=== PATIENT | female | born 2000 | race Two or more races ===

== ENCOUNTER 2018-08-03 10:54 | Emergency (ER) | payer SELFPAY ==
[~2018-08-03] VITALS: Ht 152.4 cm; Wt 63.5 kg
[~2018-08-03 10:54] MED LIST: HYDR-3164 PO; NAPR-683 PO; PNV1TABL25 PO
[2018-08-03 11:30] VITALS: BP 107/73
[2018-08-03 12:51] LABS: BILIRUBIN,URINE NEGATIVE (NEG); CLARITY,URINE CLEAR; COLOR,URINE YELLOW; NITRITE,URINE NEGATIVE (NEG); PH,URINE 5.5; PROTEIN,URINE NEGATIVE (NEG-TRACE)
[2018-08-03 13:03] LABS: SQUAMOUS EPITHELIAL CELL,UR MANY /LPF
[2018-08-03 13:04] LABS: BACTERIA,URINE MODERATE /HPF (0-FEW); WBC,URINE 20-40 /HPF (0-4)
[2018-08-03 13:25] LABS: U PREG PATIENT NEGATIVE (NEG)
[2018-08-03] MEDS ORDERED: KETOROLAC 30 MG/ML VIAL. IM ONE (13:45)
[2018-08-03] MEDS ORDERED: NITR100C62 PO (13:47)
[2018-08-03] MEDS ORDERED: CYCL5TAB PO (13:47)
--- NOTE | 2018-08-03 19:53 | PHYS DOC ---
Past Medical History Past Medical History: No Pertinent History Past Surgical History: No Surgical History Alcohol Use: Rarely Drug Use: None Adult General Chief Complaint Chief Complaint: BACK PAIN - NO INJURY HPI HPI Patient is a 18 year old female was presenting with chief complaint of back pain. 2 days ago part of the foot per son no acute injury left mid back no fever no bowel bladder incontinence legs feel normal has had back pain before but it usually goes away on its own no dysuria no fever symptoms are moderate slowly worsening with time and no relief with Advil Review of Systems Review of Systems Constitutional: Denies fever or chills [] Eyes: Denies change in visual acuity, redness, or eye pain [] HENT: Denies nasal congestion or sore throat [] Respiratory: Denies cough or shortness of breath [] Cardiovascular: No additional information not addressed in HPI [] Neurologic: Denies headache, focal weakness or sensory changes [] Endocrine: Denies polyuria or polydipsia [] All other systems were reviewed and found to be within normal limits, except as documented in this note. Current Medications Current Medications Current Medications Medications (Trade) Dose Ordered Sig/Yue Start Time Stop Time Status Last Admin Dose Admin Ketorolac Tromethamine (Toradol 30mg Vial) 30 mg 1X ONCE 08/03/18 13:45 08/03/18 13:46 DC 08/03/18 13:50 30 MG Allergies Allergies Allergies Coded Allergies Type Severity Reaction Last Updated Verified No Known Drug Allergies 05/17/15 No Physical Exam Physical Exam Constitutional: Well developed, well nourished, no acute distress, non-toxic appearance. [] HENT: Normocephalic, atraumatic, bilateral external ears normal, oropharynx moist, no oral exudates, nose normal. [] Eyes: PERRLA, EOMI, conjunctiva normal, no discharge. [] Neck: Normal range of motion, no tenderness, supple, no stridor. [] Cardiovascular:Heart rate regular rhythm, no murmur [] Lungs & Thorax: Bilateral breath sounds clear to auscultation [] Abdomen: Bowel sounds normal, soft, no tenderness, no masses, no pulsatile masses. [] Skin: Warm, dry, no erythema, no rash. [] Back: No tenderness to palpation noted in the lateral paraspinous area in the left. No focal midline tenderness Extremities: No tenderness, no cyanosis, no clubbing, ROM intact, no edema. [] Neurologic: Alert and oriented X 3, normal motor function, normal sensory function, no focal deficits noted. [] Psychologic: Affect normal, judgement normal, mood normal. [] Current Patient Data Vital Signs Vital Signs Date Time Temp Pulse Resp B/P (MAP) Pulse Ox O2 Delivery O2 Flow Rate FiO2 08/03/18 11:30 98.4 96 16 107/73 (84) 98 Room Air 98.4 Lab Values Laboratory Tests Test 08/03/18 12:16 08/03/18 12:25 Urine Test Negative (NEG) Urine Collection Type Unknown Urine Color Yellow Urine Clarity Clear Urine pH 5.5 Urine Specific [place] >=1.030 Urine Protein Negative mg/dL (NEG-TRACE) Urine Glucose (UA) Negative mg/dL (NEG) Urine Ketones (Stick) >=80 mg/dL (NEG) Urine Blood Negative (NEG) Urine Nitrite Negative (NEG) Urine Bilirubin Negative (NEG) Urine Urobilinogen Dipstick 1.0 mg/dL (0.2 mg/dL) Urine Leukocyte Esterase Small (NEG) Urine RBC 1-2 /HPF (0-2) Urine WBC 20-40 /HPF (0-4) Urine Squamous Epithelial Cells Many /LPF Urine Bacteria Moderate /HPF (0-FEW) Urine Mucus Marked /LPF EKG EKG [] Radiology/Procedures Radiology/Procedures [] Course & Med Decision Making Course & Med Decision Making Pertinent Labs and Imaging studies reviewed. (See chart for details) []18 [place] female presenting with back pain possible UTI Macrobid was provided as well as muscle relaxant this is not no neuro deficits Dragon Disclaimer Dragon Disclaimer This electronic medical record was generated, in whole or in part, using a voice recognition dictation system. Departure Departure Impression: Primary Impression: Back pain Disposition: 01 HOME, SELF-CARE Condition: STABLE Patient Instructions: Back Pain, Adult, [id number] Scripts Nitrofurantoin Monohyd/M-Cryst (MACROBID 100 MG CAPSULE) 100 Mg Capsule 1 CAP PO BID, #10 CAP Prov: TIBURCIO BISHOP MD 08/03/18 Cyclobenzaprine Hcl (CYCLOBENZAPRINE HCL) 5 Mg Tablet 5 MG PO PRN TID PRN for PAIN, #15 TAB Prov: TIBURCIO BISHOP MD 08/03/18 TIBURCIO BISHOP MD Aug 03, 2018 19:53
== END 2018-08-03 13:53 | disposition home or self-care (01) ==
LOC: ER 10:54
DX: M54.5 Low back pain (principal); M54.6 Pain in thoracic spine
CPT/HCPCS: 81001; 81025; 87086; 96372; 99284; J1885

== ENCOUNTER 2020-01-03 20:28 | Emergency (ER) | payer SELFPAY ==
[~2020-01-03] VITALS: Ht 149.9 cm; Wt 62.0 kg
[~2020-01-03 20:28] MED LIST changes: +CYCL5TAB PO; +NITR100C62 PO
[2020-01-03 20:39] VITALS: BP 115/80
--- NOTE | 2020-01-03 20:46 | PHYS DOC ---
Past Medical History Past Medical History: No Pertinent History Past Surgical History: No Surgical History Smoking Status: Former Smoker Alcohol Use: Rarely Drug Use: None General Adult EDM: Chief Complaint: FOOT INJURY PAIN HPI: HPI: Patient is a 19 year old female presents with the chief complaint of left great toe pain. Friday patients foot/toe was stepped on. Pain since onset. Pain with range of motion. Review of Systems: Review of Systems: Constitutional: Denies fever or chills. [] Eyes: Denies change in visual acuity. [] HENT: Denies nasal congestion or sore throat. [] Respiratory: Denies cough or shortness of breath. [] Cardiovascular: Denies chest pain or edema. [] GI: Denies abdominal pain, nausea, vomiting, bloody stools or diarrhea. [] : Denies dysuria. [] Musculoskeletal: Denies back pain positive left toe pain Integument: Denies rash. [] Neurologic: Denies headache, focal weakness or sensory changes. [] Endocrine: Denies polyuria or polydipsia. [] Lymphatic: Denies swollen glands. [] Psychiatric: Denies depression or anxiety. [] Heart Score: Risk Factors: Risk Factors: DM, Current or recent (<one month) smoker, HTN, HLP, family history of CAD, obesity. Risk Scores: Score 0 - 3: 2.5% MACE over next 6 weeks - Discharge Home Score 4 - 6: 20.3% MACE over next 6 weeks - Admit for Clinical Observation Score 7 - 10: 72.7% MACE over next 6 weeks - Early Invasive Strategies Allergies: Allergies: Allergies Coded Allergies Type Severity Reaction Last Updated Verified No Known Drug Allergies 05/17/15 No Physical Exam: PE: Constitutional: Well developed, well nourished, no acute distress, non-toxic appearance. [] HENT: Normocephalic, atraumatic, bilateral external ears normal, oropharynx moist, no oral exudates, nose normal. [] Eyes: PERRLA, EOMI, conjunctiva normal, no discharge. [] Neck: Normal range of motion, no tenderness, supple, no stridor. [] Cardiovascular:Heart rate regular rhythm, no murmur [] Lungs & Thorax: Bilateral breath sounds clear to auscultation [] Abdomen: Bowel sounds normal, soft, no tenderness, no masses, no pulsatile masses. [] Skin: Warm, dry, no erythema, no rash. [] Back: No tenderness, no CVA tenderness. [] Extremities: No tenderness, no cyanosis, no clubbing, ROM intact, no edema. [pain left great toe, pain with ROM] Neurologic: Alert and oriented X 3, normal motor function, normal sensory function, no focal deficits noted. [] Psychologic: Affect normal, judgement normal, mood normal. [] EKG: EKG: [] Radiology/Procedures: Radiology/Procedures: [] Course & Med Decision Making: Course & Med Decision Making Pertinent Labs and Imaging studies reviewed. (See chart for details) [] Dragon Disclaimer: Dragon Disclaimer: This electronic medical record was generated, in whole or in part, using a voice recognition dictation system. Departure Departure Impression: Primary Impression: Toe pain Additional Impressions: Toe pain, left Phalanges fracture, foot Disposition: HOME, SELF-CARE Referrals: NO PCP (PCP) Patient Instructions: Crush Injury, Fingers or Toes Scripts Tramadol Hcl (ULTRAM) 50 Mg Tablet 50 MG PO Q4HRS PRN for PAIN, #20 TAB 0 Refills Prov: LEONIDAS LEWIS I DO 01/03/20 Naproxen (NAPROSYN) 500 Mg Tablet 1 TAB PO BID for pain for 30 Days, #20 TAB 0 Refills Prov: LEONIDAS LEWIS I DO 01/03/20 Justicifation of Admission Dx: Justifications for Admission: Justification of Admission Dx: N/A LEONIDAS LEWIS I DO Jan 03, 2020 20:46
[2020-01-03] MEDS ORDERED: traMADol 50 MG TABLET PO ONE (21:00)
--- NOTE | 2020-01-03 21:01 | RAD ---
EXAM: TOES LEFT 01/03/2020 8:41 PM CLINICAL INDICATION:Great toe pain after being stepped on 2 days ago COMPARISON:None TECHNIQUE:3 views of the left great toe FINDINGS:There is a small nondisplaced intra-articular oblique fracture at the lateral base of the great toe distal phalanx. Alignment is normal. Soft tissue is unremarkable. IMPRESSION:Nondisplaced intra-articular fracture at the great toe distal phalanx. Electronically signed by: Janneth Blevins MD (01/03/2020 8:59 PM) [id number]
[2020-01-03] MEDS ORDERED: TRAM-48 PO (21:06)
[2020-01-03] MEDS ORDERED: NAPR-683 PO (21:06)
== END 2020-01-03 21:16 | disposition home or self-care (01) ==
LOC: ER 20:28
DX: S92.422A Displaced fracture of distal phalanx of left great toe, initial encounter for closed fracture (principal); Z87.891 Personal history of nicotine dependence; W18.39XA Other fall on same level, initial encounter; Y93.89 Activity, other specified; Y92.89 Other specified places as the place of occurrence of the external cause; Y99.8 Other external cause status
CPT/HCPCS: 73660; 99283